=== PATIENT | male | born 1955 | race African-American/Black ===

== ENCOUNTER 2023-12-08 09:55 | Inpatient (IN) | payer OTHER ==
[2023-12-08 12:20] VITALS: BMI 28.6
[2023-12-08] MEDS ORDERED: MAGNESIUM HYDROX 2400MG/30ML ORAL SUSPENSION 30 ML CUP PO PRN (13:19)
[2023-12-08] MEDS ORDERED: NICOTINE POLACRILEX 2 MG GUM BUC PRN (13:19)
[2023-12-08] MEDS ORDERED: ACETAMINOPHEN 325 MG TABLET (FP) PO PRN (13:19)
[2023-12-08] MEDS ORDERED: BENZOCAINE/MENTHOL (CHLORASEPTIC ) LOZENGE MM PRN (13:19)
[2023-12-08] MEDS ORDERED: ONDANSETRON *ODT* 4 MG TABLET SL PRN (13:19)
[2023-12-08] MEDS ORDERED: POLYETHYLENE GLYCOL (HEALTHYLAX) 3350 17 GM PACKET PO PRN (13:19)
[2023-12-08] MEDS ORDERED: NALOXONE (NARCAN) HCL 4 MG/0.1 ML SPRAY NS PRN (13:19)
[2023-12-08] MEDS ORDERED: LOPERAMIDE HCL 2 MG CAPSULE PO PRN (13:19)
[2023-12-08] MEDS ORDERED: IBUPROFEN 400 MG TABLET (FP) PO PRN (13:19)
[2023-12-08] MEDS ORDERED: MAG HYDROX/AL HYDROX/SIMETH 30 ML UNIT-DOSE CUP PO PRN (13:19)
[2023-12-08] MEDS ORDERED: NALOXONE HCL 0.4 MG/ML VIAL IM PRN (13:19)
[2023-12-08] MEDS ORDERED: guaiFENesin 600 MG TABLET.ER (FP) PO PRN (13:19)
[2023-12-08] MEDS ORDERED: BISMUTH SUBSALICYLATE 262 MG/15 ML BTL PO PRN (13:19)
[2023-12-08] MEDS ORDERED: BENZONATATE 200 MG CAPSULE PO PRN (13:19)
[2023-12-08] MEDS: IBUPROFEN 600 MG TABLET (FP) PO PRN (19:57)
[2023-12-08] MEDS: metFORMIN HCL 500 MG TABLET (FP) PO SCH (21:43)
[2023-12-08] MEDS: GABAPENTIN 300 MG CAPSULE PO SCH (21:43)
[2023-12-08] MEDS: THIAMINE 100 MG TABLET PO SCH (21:43)
[2023-12-08] MEDS: MELATONIN 5 MG TABLETS PO SCH (21:44)
[2023-12-09] MEDS ORDERED: MULTIVITAMINS (DAILY MVI) TABLET (FP) PO SCH (10:00)
[2023-12-09] MEDS: BICTEGRAV/EMTRICIT/TENOFOV (BIKTARVY) 50-200-25 MG TABLET PO SCH (10:18)
[2023-12-09] MEDS: NICOTINE 14 MG/24 HOURS TOPICAL PATCH TD SCH (10:18)
[2023-12-09] MEDS: amLODIPine BESYLATE 10 MG TABLET (FP) PO SCH (10:18)
[2023-12-09] MEDS: PRENATAL VITAMINS W/ FOLIC ACID TABLET (FP) PO SCH (10:18)
[2023-12-09] MEDS: FOLIC ACID 1 MG TABLET (FP) PO SCH (10:18)
[2023-12-09] MEDS: LORATADINE 10 MG TABLET PO SCH (10:18)
[2023-12-09] MEDS: PANTOPRAZOLE 40 MG TABLET PO SCH (10:18)
[2023-12-09] MEDS: SULFAMETHOXAZOLE/TRIMETHOPRIM 800MG/160MG D.S. TABLET PO SCH (10:18)
[2023-12-09] MEDS: ASPIRIN COATED 81 MG TABLET.EC PO SCH (10:18)
[2023-12-09] MEDS: VITAMINS A AND D TOPICAL OINTMENT TP SCH (11:18)
[2023-12-09] MEDS ORDERED: ARTIFICIAL TEARS OPHTHALMIC DROPS OU PRN (11:18)
[2023-12-09] MEDS: FENOFIBRIC ACID 45 MG CAP PO SCH (11:19)
[2023-12-09] MEDS: cloNIDine HCL 0.1 MG TABLET PO ONE (22:15)
[2023-12-10 09:04] VITALS: BP 139/84; PULSE 75; RESP 18; TEMP 97.6
[2023-12-10 10:26] LABS: HEMATOCRIT 37.7 % (35.4-49); HEMOGLOBIN 12.9 GM/dL (11.7-16.9); MCH 36.1 pg (25.7-33.7); MCHC 34.2 g/dl (32.0-35.9); MEAN CELL VOLUME 105.7 fl (80-96); MEAN PLT VOLUME 8.7 fl (7.5-11.1); PLATELET COUNT 167 10^3/uL (134-434); RBC 3.57 M/mm3 (4.00-5.60); RDW 14.3 % (11.9-15.9); WHITE BLOOD COUNT 3.6 K/mm3 (4.0-10.0)
[2023-12-10 10:45] LABS: CHLORIDE 107 mmol/L (98-107); POTASSIUM 4.3 mmol/L (3.5-5.1); SODIUM 139 mmol/L (136-145)
[2023-12-10 10:55] LABS: ALBUMIN 3.4 g/dl (3.4-5.0); BLOOD UREA NITROGEN 14.5 mg/dL (7-18); SGPT/ALT 34 U/L (13-61)
[2023-12-10 10:56] LABS: BILIRUBIN,TOTAL 0.3 mg/dL (0.2-1); CALCIUM 8.9 mg/dL (8.5-10.1); SGOT/AST 29 U/L (15-37)
[2023-12-10 10:57] LABS: ALK PHOS 105 U/L (45-117); ANION GAP 8 mmol/L (4-13); CO2 24 mmol/L (21-32); GLUCOSE,RANDOM 145 mg/dL (74-106); TOT PROT 6.7 g/dl (6.4-8.2)
== END 2023-12-10 12:27 | disposition home or self-care (01) | DRG 897 ==
LOC: YASAS 09:55 → Y3N 13:40
PROVIDERS: ADMIT Allergy & Immunology; ATTEND Surgery
PROC: HZ2ZZZZ Detoxification Services for Substance Abuse Treatment (ICD-10-PCS; principal; 2023-12-08)
DX: F10.230 Alcohol dependence with withdrawal, uncomplicated (principal); F17.210 Nicotine dependence, cigarettes, uncomplicated; I10 Essential (primary) hypertension; I25.10 Atherosclerotic heart disease of native coronary artery without angina pectoris; E11.9 Type 2 diabetes mellitus without complications; E78.5 Hyperlipidemia, unspecified; Z21 Asymptomatic human immunodeficiency virus [HIV] infection status; K21.9 Gastro-esophageal reflux disease without esophagitis; G62.89 Other specified polyneuropathies; L29.9 Pruritus, unspecified; Z79.84 Long term (current) use of oral hypoglycemic drugs
CPT/HCPCS: 36415; 80053; 80305; 80307; 82962; 85027; 86593; 86780; 93005; 93010

== ENCOUNTER 2024-02-13 09:47 | Inpatient (IN) | payer OTHER ==
[2024-02-13 11:22] VITALS: BMI 28.3
[2024-02-13] MEDS ORDERED: NALOXONE (NYS OPIOID OVERDOSE PROGRAM) 4 MG/0.1 ML SPRAY NS PRN (13:58)
[2024-02-13] MEDS ORDERED: BISMUTH SUBSALICYLATE 524 MG/30 ML PO PRN (13:58)
[2024-02-13] MEDS ORDERED: IBUPROFEN 400 MG TABLET (FP) PO PRN (13:58)
[2024-02-13] MEDS ORDERED: BENZONATATE 200 MG CAPSULE PO PRN (13:58)
[2024-02-13] MEDS ORDERED: LOPERAMIDE HCL 2 MG CAPSULE PO PRN (13:58)
[2024-02-13] MEDS ORDERED: POLYETHYLENE GLYCOL (HEALTHYLAX) 3350 17 GM PACKET PO PRN (13:58)
[2024-02-13] MEDS ORDERED: MAGNESIUM HYDROX 2400MG/30ML ORAL SUSPENSION 30 ML CUP PO PRN (13:58)
[2024-02-13] MEDS ORDERED: BENZOCAINE/MENTHOL (CHLORASEPTIC ) LOZENGE MM PRN (13:58)
[2024-02-13] MEDS ORDERED: NALOXONE (NARCAN) HCL 4 MG/0.1 ML SPRAY NS PRN (13:58)
[2024-02-13] MEDS ORDERED: ONDANSETRON *ODT* 4 MG TABLET SL PRN (13:58)
[2024-02-13] MEDS ORDERED: guaiFENesin 600 MG TABLET.ER (FP) PO PRN (13:58)
[2024-02-13] MEDS ORDERED: ACETAMINOPHEN 325 MG TABLET (FP) PO PRN (13:58)
[2024-02-13] MEDS ORDERED: chlordiazePOXIDE HCL 25 MG CAPSULE PO PRN (13:58)
[2024-02-13] MEDS ORDERED: DICYCLOMINE HCL 10 MG CAPSULE PO PRN (13:58)
[2024-02-13] MEDS: amLODIPine BESYLATE 10 MG TABLET (FP) PO SCH (15:17)
[2024-02-13] MEDS: GABAPENTIN 300 MG CAPSULE PO SCH (15:17)
[2024-02-13] MEDS: BICTEGRAV/EMTRICIT/TENOFOV (BIKTARVY) 50-200-25 MG TABLET PO SCH (15:17)
[2024-02-13] MEDS: ASPIRIN COATED 81 MG TABLET.EC PO SCH (15:17)
[2024-02-13] MEDS: hydrOXYzine PAMOATE 25 MG CAPSULE (FP) PO PRN (15:35)
[2024-02-13] MEDS: metFORMIN HCL 500 MG TABLET (FP) PO SCH (16:26)
[2024-02-13] MEDS: chlordiazePOXIDE HCL 25 MG CAPSULE PO SCH (17:17)
[2024-02-13] MEDS: IBUPROFEN 600 MG TABLET (FP) PO PRN (19:13)
[2024-02-13 21:28] LABS: PH,URINE 5.5 (5.0-8.0); URINE APPEARANCE CLEAR; URINE BILIRUBIN NEGATIVE (NEGATIVE); URINE COLOR YELLOW; URINE GLUCOSE (UA) NEGATIVE (NEGATIVE); URINE KETONE NEGATIVE (NEGATIVE); URINE LEUK ESTERASE NEGATIVE (NEGATIVE); URINE NITRITE NEGATIVE (NEGATIVE); URINE PROTEIN NEGATIVE (NEGATIVE); URINE UROBILINOGEN 0.2 mg/dL (0.2-1.0)
[2024-02-13] MEDS: METOPROLOL TARTRATE 50 MG TABLET (FP) PO SCH (22:34)
[2024-02-13] MEDS: MELATONIN 5 MG TABLETS PO SCH (22:34)
[2024-02-13] MEDS: THIAMINE 100 MG TABLET PO SCH (22:35)
[2024-02-14] MEDS: SULFAMETHOXAZOLE/TRIMETHOPRIM 800MG/160MG D.S. TABLET PO SCH (10:30)
[2024-02-14] MEDS: PANTOPRAZOLE 40 MG TABLET PO SCH (10:30)
[2024-02-14] MEDS: PRENATAL VITAMINS W/ FOLIC ACID TABLET (FP) PO SCH (10:30)
[2024-02-14] MEDS: FENOFIBRIC ACID 45 MG CAP PO SCH (10:31)
[2024-02-14] MEDS: MAG HYDROX/AL HYDROX/SIMETH 30 ML UNIT-DOSE CUP PO PRN (10:34)
[2024-02-14] MEDS: MICONAZOLE NITRATE 28 GM TUBE TP SCH (11:43)
[2024-02-14 14:02] LABS: HEMOGLOBIN 12.8 GM/dL (11.7-16.9); MCH 35.2 pg (25.7-33.7); MCHC 33.6 g/dl (32.0-35.9); MEAN PLT VOLUME 8.8 fl (7.5-11.1); PLATELET COUNT 146 10^3/uL (134-434); RBC 3.62 M/mm3 (4.00-5.60); RDW 14.4 % (11.9-15.9); WHITE BLOOD COUNT 2.7 K/mm3 (4.0-10.0)
[2024-02-14 14:35] LABS: CHLORIDE 108 mmol/L (98-107); POTASSIUM 3.8 mmol/L (3.5-5.1); SODIUM 140 mmol/L (136-145)
[2024-02-14 14:45] LABS: ALBUMIN 3.5 g/dl (3.4-5.0); ANION GAP 6 mmol/L (4-13); CALCIUM 8.7 mg/dL (8.5-10.1); CO2 26 mmol/L (21-32); GLUCOSE,RANDOM 123 mg/dL (74-106)
[2024-02-14 14:48] LABS: CREATININE 0.9 mg/dL (0.55-1.3); SGOT/AST 23 U/L (15-37); SGPT/ALT 28 U/L (13-61)
[2024-02-14 14:50] LABS: ALK PHOS 93 U/L (45-117); BILIRUBIN,TOTAL 0.3 mg/dL (0.2-1); TOT PROT 6.9 g/dl (6.4-8.2)
[2024-02-15] MEDS: chlordiazePOXIDE HCL 25 MG CAPSULE PO SCH (05:49)
[2024-02-15] MEDS: TETRAHYDROZOLINE HCL EYE DROPS OU PRN (13:39)
[2024-02-16] MEDS ORDERED: chlordiazePOXIDE HCL 10 MG CAPSULE PO PRN
[2024-02-16] MEDS: chlordiazePOXIDE HCL 10 MG CAPSULE PO SCH (06:00)
[2024-02-16 23:35] LABS: URINE APPEARANCE CLEAR; URINE BILIRUBIN NEGATIVE (NEGATIVE); URINE COLOR YELLOW; URINE GLUCOSE (UA) NEGATIVE (NEGATIVE); URINE KETONE NEGATIVE (NEGATIVE); URINE LEUK ESTERASE NEGATIVE (NEGATIVE); URINE NITRITE NEGATIVE (NEGATIVE); URINE PROTEIN NEGATIVE (NEGATIVE); URINE UROBILINOGEN 0.2 mg/dL (0.2-1.0)
[2024-02-17] MEDS: chlordiazePOXIDE HCL 10 MG CAPSULE PO SCH (05:55)
[2024-02-17 13:53] VITALS: RESP 18
[2024-02-18] MEDS: chlordiazePOXIDE HCL 10 MG CAPSULE PO ONE (05:55)
[2024-02-18 13:15] VITALS: BP 141/74; PULSE 80; TEMP 97.5
== END 2024-02-18 13:27 | disposition other institution (70) | DRG 897 ==
LOC: YASAS 09:47 → Y3N 14:28
PROVIDERS: ADMIT Surgery; ATTEND Surgery
PROC: HZ2ZZZZ Detoxification Services for Substance Abuse Treatment (ICD-10-PCS; principal; 2024-02-13)
DX: F10.230 Alcohol dependence with withdrawal, uncomplicated (principal); Z21 Asymptomatic human immunodeficiency virus [HIV] infection status; G62.1 Alcoholic polyneuropathy; E78.5 Hyperlipidemia, unspecified; I25.10 Atherosclerotic heart disease of native coronary artery without angina pectoris; I10 Essential (primary) hypertension; K21.9 Gastro-esophageal reflux disease without esophagitis; E11.59 Type 2 diabetes mellitus with other circulatory complications; Z79.84 Long term (current) use of oral hypoglycemic drugs; Z79.899 Other long term (current) drug therapy; Z86.19 Personal history of other infectious and parasitic diseases; Z88.8 Allergy status to other drugs, medicaments and biological substances
CPT/HCPCS: 36415; 80053; 80305; 80307; 81003; 82962; 85027; 86593; 86780; 93005; 93010

== ENCOUNTER 2024-02-18 13:33 | Inpatient (IN) | payer OTHER ==
[2024-02-18 13:45] VITALS: BMI 28.3
[2024-02-18] MEDS ORDERED: NALOXONE (NARCAN) HCL 4 MG/0.1 ML SPRAY NS PRN (15:48)
[2024-02-18] MEDS ORDERED: guaiFENesin 600 MG TABLET.ER (FP) PO PRN (15:48)
[2024-02-18] MEDS ORDERED: LOPERAMIDE HCL 2 MG CAPSULE PO PRN (15:48)
[2024-02-18] MEDS ORDERED: BENZONATATE 200 MG CAPSULE PO PRN (15:48)
[2024-02-18] MEDS ORDERED: NALOXONE HCL 0.4 MG/ML VIAL IVPUSH PRN (15:48)
[2024-02-18] MEDS ORDERED: BENZOCAINE/MENTHOL (CHLORASEPTIC ) LOZENGE MM PRN (15:48)
[2024-02-18] MEDS ORDERED: NICOTINE POLACRILEX 2 MG GUM BUC PRN (15:48)
[2024-02-18] MEDS ORDERED: ACETAMINOPHEN 325 MG TABLET (FP) PO PRN (15:48)
[2024-02-18] MEDS ORDERED: IBUPROFEN 400 MG TABLET (FP) PO PRN (15:48)
[2024-02-18] MEDS ORDERED: POLYETHYLENE GLYCOL (HEALTHYLAX) 3350 17 GM PACKET PO PRN (15:48)
[2024-02-18] MEDS ORDERED: NICOTINE POLACRILEX 2 MG LOZENGE BC PRN (15:48)
[2024-02-18] MEDS ORDERED: MAGNESIUM HYDROX 2400MG/30ML ORAL SUSPENSION 30 ML CUP PO PRN (15:48)
[2024-02-18] MEDS: metFORMIN HCL 500 MG TABLET (FP) PO SCH (17:26)
[2024-02-18] MEDS: IBUPROFEN 600 MG TABLET (FP) PO PRN (21:27)
[2024-02-18] MEDS: THIAMINE 100 MG TABLET PO SCH (21:28)
[2024-02-18] MEDS: METOPROLOL TARTRATE 50 MG TABLET (FP) PO SCH (21:28)
[2024-02-18] MEDS: GABAPENTIN 300 MG CAPSULE PO SCH (21:28)
[2024-02-18] MEDS: MELATONIN 5 MG TABLETS PO SCH (21:29)
[2024-02-19] MEDS: MAG HYDROX/AL HYDROX/SIMETH 30 ML UNIT-DOSE CUP PO PRN (06:17)
[2024-02-19] MEDS: BICTEGRAV/EMTRICIT/TENOFOV (BIKTARVY) 50-200-25 MG TABLET PO SCH (07:11)
[2024-02-19] MEDS: PANTOPRAZOLE 40 MG TABLET PO SCH (07:12)
[2024-02-19] MEDS ORDERED: SIMETHICONE 80 MG TAB.CHEW (FP) PO PRN (08:50)
[2024-02-19] MEDS: TETRAHYDROZOLINE HCL EYE DROPS OU PRN (09:03)
[2024-02-19] MEDS: ASPIRIN COATED 81 MG TABLET.EC PO SCH (09:45)
[2024-02-19] MEDS: PRENATAL VITAMINS W/ FOLIC ACID TABLET (FP) PO SCH (09:45)
[2024-02-19] MEDS: amLODIPine BESYLATE 10 MG TABLET (FP) PO SCH (09:45)
[2024-02-19] MEDS: FOLIC ACID 1 MG TABLET (FP) PO SCH (09:46)
[2024-02-19] MEDS: SULFAMETHOXAZOLE/TRIMETHOPRIM 800MG/160MG D.S. TABLET PO SCH (09:46)
[2024-02-19] MEDS: FENOFIBRIC ACID 45 MG CAP PO SCH (09:46)
[2024-02-19] MEDS: diphenhydrAMINE HCL 25 MG CAPSULE (FP) PO ONE (19:20)
[2024-02-20] MEDS: HYDROCORTISONE 1% TOPICAL CREAM 30 GM TUBE TP PRN (22:45)
[2024-02-21] MEDS: diphenhydrAMINE HCL 25 MG CAPSULE (FP) PO PRN (10:38)
[2024-02-21 21:19] LABS: URINE APPEARANCE CLEAR; URINE BILIRUBIN NEGATIVE (NEGATIVE); URINE COLOR YELLOW; URINE GLUCOSE (UA) 3+ (NEGATIVE); URINE KETONE NEGATIVE (NEGATIVE); URINE LEUK ESTERASE NEGATIVE (NEGATIVE); URINE NITRITE NEGATIVE (NEGATIVE); URINE PROTEIN NEGATIVE (NEGATIVE); URINE UROBILINOGEN 0.2 mg/dL (0.2-1.0)
[2024-02-22] MEDS: metFORMIN HCL 500 MG TABLET (FP) PO SCH (17:01)
[2024-02-22] MEDS: DULoxetine HCL 20 MG CAPSULE.DR PO SCH (19:27)
[2024-02-23 11:22] LABS: URINE APPEARANCE CLEAR; URINE BILIRUBIN NEGATIVE (NEGATIVE); URINE COLOR YELLOW; URINE GLUCOSE (UA) NEGATIVE (NEGATIVE); URINE KETONE NEGATIVE (NEGATIVE); URINE LEUK ESTERASE NEGATIVE (NEGATIVE); URINE NITRITE NEGATIVE (NEGATIVE); URINE PROTEIN NEGATIVE (NEGATIVE); URINE UROBILINOGEN 0.2 mg/dL (0.2-1.0)
[2024-02-24] MEDS: PANTOPRAZOLE 40 MG TABLET PO SCH (06:31)
[2024-02-24] MEDS: BICTEGRAV/EMTRICIT/TENOFOV (BIKTARVY) 50-200-25 MG TABLET PO SCH (06:31)
[2024-02-24 06:53] VITALS: RESP 18; TEMP 97
[2024-02-25 07:01] VITALS: BP 121/78; PULSE 75
== END 2024-02-25 10:50 | disposition home or self-care (01) | DRG 895 ==
LOC: YASAS 13:33 → Y3NR 13:34 → Y5N 02-22 11:57
PROVIDERS: ADMIT Psychiatry & Neurology Pain Medicine; ATTEND Psychiatry & Neurology Pain Medicine
PROC: HZ42ZZZ Group Counseling for Substance Abuse Treatment, Cognitive-Behavioral (ICD-10-PCS; principal; 2024-02-18)
DX: F10.20 Alcohol dependence, uncomplicated (principal); F17.210 Nicotine dependence, cigarettes, uncomplicated; K21.9 Gastro-esophageal reflux disease without esophagitis; I25.10 Atherosclerotic heart disease of native coronary artery without angina pectoris; I10 Essential (primary) hypertension; E11.42 Type 2 diabetes mellitus with diabetic polyneuropathy; Z79.84 Long term (current) use of oral hypoglycemic drugs; Z88.8 Allergy status to other drugs, medicaments and biological substances
CPT/HCPCS: 36415; 81003; 82962; 84153

== ENCOUNTER 2024-06-29 13:59 | Inpatient (IN) | payer OTHER ==
[2024-06-29 14:26] VITALS: BMI 28.0
[2024-06-29] MEDS ORDERED: DICYCLOMINE HCL 10 MG CAPSULE PO PRN (15:05)
[2024-06-29] MEDS ORDERED: BENZOCAINE/MENTHOL (CHLORASEPTIC ) LOZENGE MM PRN (15:05)
[2024-06-29] MEDS ORDERED: NALOXONE (NARCAN) HCL 4 MG/0.1 ML SPRAY NS PRN (15:05)
[2024-06-29] MEDS ORDERED: BENZONATATE 200 MG CAPSULE PO PRN (15:05)
[2024-06-29] MEDS ORDERED: MAGNESIUM HYDROX 2400MG/30ML ORAL SUSPENSION 30 ML CUP PO PRN (15:05)
[2024-06-29] MEDS ORDERED: guaiFENesin 600 MG TABLET.ER (FP) PO PRN (15:05)
[2024-06-29] MEDS ORDERED: POLYETHYLENE GLYCOL (HEALTHYLAX) 3350 17 GM PACKET PO PRN (15:05)
[2024-06-29] MEDS ORDERED: ONDANSETRON *ODT* 4 MG TABLET SL PRN (15:05)
[2024-06-29] MEDS ORDERED: chlordiazePOXIDE HCL 25 MG CAPSULE PO PRN ×2 (15:05→15:25)
[2024-06-29] MEDS: INSULIN ASPART SLIDING SCALE (NOVOLOG) 1 VIAL SQ SCH (16:51)
[2024-06-29] MEDS ORDERED: chlordiazePOXIDE HCL 25 MG CAPSULE PO SCH (17:00)
[2024-06-29] MEDS: chlordiazePOXIDE HCL 25 MG CAPSULE PO SCH (17:15)
[2024-06-29] MEDS: ACETAMINOPHEN 325 MG TABLET (FP) PO PRN (17:15)
[2024-06-29] MEDS: hydrOXYzine PAMOATE 25 MG CAPSULE (FP) PO PRN (17:18)
[2024-06-29] MEDS: amLODIPine BESYLATE 10 MG TABLET (FP) PO SCH (17:47)
[2024-06-29] MEDS: IBUPROFEN 400 MG TABLET (FP) PO PRN (19:46)
[2024-06-29] MEDS: MAG HYDROX/AL HYDROX/SIMETH 30 ML UNIT-DOSE CUP PO PRN (21:08)
[2024-06-29] MEDS: MELATONIN 5 MG TABLETS PO SCH (22:18)
[2024-06-29] MEDS: THIAMINE 100 MG TABLET PO SCH (22:18)
[2024-06-29] MEDS: METOPROLOL TARTRATE 50 MG TABLET (FP) PO SCH (22:18)
[2024-06-30] MEDS: PANTOPRAZOLE 40 MG TABLET PO SCH (06:35)
[2024-06-30] MEDS: BICTEGRAV/EMTRICIT/TENOFOV (BIKTARVY) 50-200-25 MG TABLET PO SCH (07:19)
[2024-06-30] MEDS: ASPIRIN COATED 81 MG TABLET.EC PO SCH (10:05)
[2024-06-30] MEDS: PRENATAL VITAMINS W/ FOLIC ACID TABLET (FP) PO SCH (10:05)
[2024-06-30] MEDS: SULFAMETHOXAZOLE/TRIMETHOPRIM 800MG/160MG D.S. TABLET PO SCH (10:05)
[2024-06-30 11:10] LABS: HEMATOCRIT 36.6 % (35.4-49); HEMOGLOBIN 12.7 GM/dL (11.7-16.9); MCH 36.3 pg (25.7-33.7); MCHC 34.8 g/dl (32.0-35.9); MEAN CELL VOLUME 104.2 fl (80-96); MEAN PLT VOLUME 8.6 fl (7.5-11.1); PLATELET COUNT 131 10^3/uL (134-434); RBC 3.51 M/mm3 (4.00-5.60); RDW 15.9 % (11.9-15.9); WHITE BLOOD COUNT 2.3 K/mm3 (4.0-10.0)
[2024-06-30 11:22] LABS: CHLORIDE 104 mmol/L (98-107); SODIUM 139 mmol/L (136-145)
[2024-06-30 11:32] LABS: ALBUMIN 3.2 g/dl (3.4-5.0); ANION GAP 8 mmol/L (4-13); BLOOD UREA NITROGEN 9.6 mg/dL (7-18); CALCIUM 8.5 mg/dL (8.5-10.1); CO2 28 mmol/L (21-32)
[2024-06-30 11:33] LABS: GLUCOSE,RANDOM 151 mg/dL (74-106)
[2024-06-30] MEDS ORDERED: diazePAM 5 MG TABLET PO PRN (11:33)
[2024-06-30 11:35] LABS: SGOT/AST 36 U/L (15-37); SGPT/ALT 33 U/L (13-61)
[2024-06-30 11:36] LABS: CREATININE 0.9 mg/dL (0.55-1.3)
[2024-06-30 11:37] LABS: BILIRUBIN,TOTAL 0.8 mg/dL (0.2-1); TOT PROT 6.5 g/dl (6.4-8.2)
[2024-06-30 11:38] LABS: ALK PHOS 83 U/L (45-117)
[2024-06-30] MEDS: POTASSIUM CHLORIDE ORAL LIQUID 20 MEQ/15 ML PO ONE (12:05)
[2024-06-30] MEDS: diazePAM 5 MG TABLET PO SCH (17:28)
[2024-06-30] MEDS: BISMUTH SUBSALICYLATE 262 MG/15 ML BTL PO PRN (17:29)
[2024-06-30] MEDS: TETRAHYDROZOLINE HCL EYE DROPS OU PRN (17:32)
[2024-06-30] MEDS: LOPERAMIDE HCL 2 MG CAPSULE PO PRN (22:21)
[2024-07-01] MEDS ORDERED: chlordiazePOXIDE HCL 25 MG CAPSULE PO SCH (05:00)
[2024-07-01] MEDS: diazePAM 5 MG TABLET PO SCH (06:12)
[2024-07-01 10:19] LABS: POTASSIUM 3.3 mmol/L (3.5-5.1)
[2024-07-01 10:24] LABS: BLOOD UREA NITROGEN 12.4 mg/dL (7-18)
[2024-07-01] MEDS: POTASSIUM CHLORIDE ORAL LIQUID 20 MEQ/15 ML PO ONE (14:30)
[2024-07-02] MEDS ORDERED: chlordiazePOXIDE HCL 10 MG CAPSULE PO PRN ×2
[2024-07-02] MEDS ORDERED: chlordiazePOXIDE HCL 10 MG CAPSULE PO SCH ×2 (05:00)
[2024-07-02] MEDS: diazePAM 5 MG TABLET PO SCH (06:37)
[2024-07-02 10:20] LABS: POTASSIUM 3.7 mmol/L (3.5-5.1)
[2024-07-02 10:22] LABS: CALCIUM 9.2 mg/dL (8.5-10.1)
[2024-07-02 10:23] LABS: BLOOD UREA NITROGEN 16.1 mg/dL (7-18)
[2024-07-02] MEDS: diphenhydrAMINE HCL 25 MG CAPSULE (FP) PO ONE (18:13)
[2024-07-02] MEDS: VITAMINS A AND D TOPICAL OINTMENT TP SCH (23:15)
[2024-07-03] MEDS ORDERED: chlordiazePOXIDE HCL 10 MG CAPSULE PO SCH ×2 (05:00)
[2024-07-03] MEDS: diazePAM 5 MG TABLET PO ONE (06:02)
[2024-07-03 09:00] VITALS: RESP 18
[2024-07-03] MEDS ORDERED: HYDROCORTISONE 1% TOPICAL CREAM 30 GM TUBE TP PRN (10:23)
[2024-07-03] MEDS ORDERED: diphenhydrAMINE HCL 25 MG CAPSULE (FP) PO PRN (10:23)
[2024-07-03] MEDS: GABAPENTIN 300 MG CAPSULE PO SCH (11:16)
[2024-07-03 13:04] VITALS: BP 117/87; PULSE 63; TEMP 97.8
[2024-07-03] MEDS ORDERED: metFORMIN HCL 500 MG TABLET (FP) PO SCH (16:30)
[2024-07-04] MEDS ORDERED: chlordiazePOXIDE HCL 10 MG CAPSULE PO ONE ×2 (05:00)
[2024-07-04] MEDS ORDERED: FENOFIBRIC ACID 45 MG CAP PO SCH (10:00)
== END 2024-07-03 15:03 | disposition other institution (70) | DRG 897 ==
LOC: YASAS 13:59 → Y3N 16:13
PROVIDERS: ADMIT Allergy & Immunology; ATTEND Allergy & Immunology
PROC: HZ2ZZZZ Detoxification Services for Substance Abuse Treatment (ICD-10-PCS; principal; 2024-06-29)
DX: F10.230 Alcohol dependence with withdrawal, uncomplicated (principal); F14.20 Cocaine dependence, uncomplicated; F17.210 Nicotine dependence, cigarettes, uncomplicated; Z21 Asymptomatic human immunodeficiency virus [HIV] infection status; G62.1 Alcoholic polyneuropathy; I25.10 Atherosclerotic heart disease of native coronary artery without angina pectoris; I10 Essential (primary) hypertension; E78.5 Hyperlipidemia, unspecified; E11.9 Type 2 diabetes mellitus without complications; Z79.84 Long term (current) use of oral hypoglycemic drugs; L29.9 Pruritus, unspecified
CPT/HCPCS: 36415; 80048; 80053; 80305; 80307; 82962; 85027; 86593; 86780; 87811; 93005; 93010

== ENCOUNTER 2024-07-03 15:04 | Inpatient (IN) | payer OTHER ==
[2024-07-03] MEDS ORDERED: IBUPROFEN 400 MG TABLET (FP) PO PRN (15:22)
[2024-07-03] MEDS ORDERED: guaiFENesin 600 MG TABLET.ER (FP) PO PRN (15:22)
[2024-07-03] MEDS ORDERED: BENZOCAINE/MENTHOL (CHLORASEPTIC ) LOZENGE MM PRN (15:22)
[2024-07-03] MEDS ORDERED: METHOCARBAMOL 500 MG TABLET PO PRN (15:22)
[2024-07-03] MEDS ORDERED: BENZONATATE 200 MG CAPSULE PO PRN (15:22)
[2024-07-03] MEDS ORDERED: LOPERAMIDE HCL 2 MG CAPSULE PO PRN (15:22)
[2024-07-03] MEDS ORDERED: POLYETHYLENE GLYCOL (HEALTHYLAX) 3350 17 GM PACKET PO PRN (15:22)
[2024-07-03] MEDS ORDERED: MAGNESIUM HYDROX 2400MG/30ML ORAL SUSPENSION 30 ML CUP PO PRN (15:22)
[2024-07-03] MEDS ORDERED: metFORMIN HCL 500 MG TABLET (FP) PO SCH (16:30)
[2024-07-03] MEDS: metFORMIN HCL 500 MG TABLET (FP) PO SCH (17:22)
[2024-07-03] MEDS: GABAPENTIN 300 MG CAPSULE PO SCH (22:16)
[2024-07-03] MEDS: MELATONIN 5 MG TABLETS PO SCH (22:16)
[2024-07-03] MEDS: METOPROLOL TARTRATE 50 MG TABLET (FP) PO SCH (22:16)
[2024-07-03] MEDS: THIAMINE 100 MG TABLET PO SCH (22:16)
[2024-07-04] MEDS: hydrOXYzine PAMOATE 25 MG CAPSULE (FP) PO PRN (01:03)
[2024-07-04] MEDS: ACETAMINOPHEN 325 MG TABLET (FP) PO PRN (01:03)
[2024-07-04] MEDS: PRENATAL VITAMINS W/ FOLIC ACID TABLET (FP) PO SCH (05:35)
[2024-07-04] MEDS: PANTOPRAZOLE 40 MG TABLET PO SCH (06:13)
[2024-07-04] MEDS: ASPIRIN COATED 81 MG TABLET.EC PO SCH (09:33)
[2024-07-04] MEDS: amLODIPine BESYLATE 10 MG TABLET (FP) PO SCH (09:33)
[2024-07-04] MEDS: SULFAMETHOXAZOLE/TRIMETHOPRIM 800MG/160MG D.S. TABLET PO SCH (09:33)
[2024-07-04] MEDS: BICTEGRAV/EMTRICIT/TENOFOV (BIKTARVY) 50-200-25 MG TABLET PO SCH (09:33)
[2024-07-04] MEDS: FOLIC ACID 1 MG TABLET (FP) PO SCH (09:34)
[2024-07-04] MEDS: FENOFIBRIC ACID 45 MG CAP PO SCH (09:36)
[2024-07-05] MEDS: HYDROCORTISONE 1% TOPICAL CREAM 30 GM TUBE TP PRN (09:53)
[2024-07-05] MEDS: diphenhydrAMINE HCL 25 MG CAPSULE (FP) PO PRN (09:58)
[2024-07-05] MEDS: GABAPENTIN 400 MG CAPSULE PO SCH (14:14)
[2024-07-05] MEDS: BACLOFEN 10 MG TABLET (FP) PO SCH (21:14)
[2024-07-06] MEDS: TETRAHYDROZOLINE HCL EYE DROPS OU PRN (21:20)
[2024-07-07] MEDS: LIDOCAINE 5% TOPICAL PATCH TP SCH (09:41)
[2024-07-07] MEDS: LIDOCAINE PATCH REMOVAL MC SCH (21:05)
[2024-07-08] MEDS: MAG HYDROX/AL HYDROX/SIMETH 30 ML UNIT-DOSE CUP PO PRN (14:03)
[2024-07-08] MEDS: IBUPROFEN 600 MG TABLET (FP) PO PRN (16:55)
[2024-07-10 18:36] LABS: URINE APPEARANCE CLEAR; URINE BILIRUBIN NEGATIVE (NEGATIVE); URINE COLOR YELLOW; URINE GLUCOSE (UA) NEGATIVE (NEGATIVE); URINE KETONE NEGATIVE (NEGATIVE); URINE LEUK ESTERASE NEGATIVE (NEGATIVE); URINE NITRITE NEGATIVE (NEGATIVE); URINE PROTEIN NEGATIVE (NEGATIVE); URINE UROBILINOGEN 0.2 mg/dL (0.2-1.0)
[2024-07-17 06:52] VITALS: BP 149/85; PULSE 77; RESP 16; TEMP 97.5
== END 2024-07-17 10:15 | disposition home or self-care (01) | DRG 895 ==
LOC: YASAS 15:04 → Y3NR 15:06 → Y5N 07-04 11:24
PROVIDERS: ADMIT Psychiatry & Neurology Pain Medicine; ATTEND Psychiatry & Neurology Pain Medicine
PROC: HZ42ZZZ Group Counseling for Substance Abuse Treatment, Cognitive-Behavioral (ICD-10-PCS; principal; 2024-07-03)
DX: F10.20 Alcohol dependence, uncomplicated (principal); F14.20 Cocaine dependence, uncomplicated; F17.210 Nicotine dependence, cigarettes, uncomplicated; Z21 Asymptomatic human immunodeficiency virus [HIV] infection status; I25.10 Atherosclerotic heart disease of native coronary artery without angina pectoris; I10 Essential (primary) hypertension; E11.40 Type 2 diabetes mellitus with diabetic neuropathy, unspecified; Z79.84 Long term (current) use of oral hypoglycemic drugs; K21.9 Gastro-esophageal reflux disease without esophagitis; M54.50 Low back pain, unspecified; G89.29 Other chronic pain; R76.8 Other specified abnormal immunological findings in serum; Z86.19 Personal history of other infectious and parasitic diseases
CPT/HCPCS: 36415; 81003; 82962; 86803; J0475

== ENCOUNTER 2024-12-28 10:05 | Inpatient (IN) | payer OTHER ==
[2024-12-28 10:33] VITALS: BMI 27.7
[2024-12-28] MEDS ORDERED: IBUPROFEN 400 MG TABLET (FP) PO PRN (13:09)
[2024-12-28] MEDS ORDERED: BENZONATATE 200 MG CAPSULE PO PRN (13:09)
[2024-12-28] MEDS ORDERED: NALOXONE (NARCAN) HCL 4 MG/0.1 ML SPRAY NS PRN (13:09)
[2024-12-28] MEDS ORDERED: NICOTINE POLACRILEX 2 MG GUM BUC PRN (13:09)
[2024-12-28] MEDS ORDERED: BISMUTH SUBSALICYLATE 524 MG/30 ML PO PRN (13:09)
[2024-12-28] MEDS ORDERED: MAG HYDROX/AL HYDROX/SIMETH 30 ML UNIT-DOSE CUP PO PRN (13:09)
[2024-12-28] MEDS ORDERED: MAGNESIUM HYDROX 2400MG/30ML ORAL SUSPENSION 30 ML CUP PO PRN (13:09)
[2024-12-28] MEDS ORDERED: POLYETHYLENE GLYCOL (HEALTHYLAX) 3350 17 GM PACKET PO PRN (13:09)
[2024-12-28] MEDS ORDERED: guaiFENesin 600 MG TABLET.ER (FP) PO PRN (13:09)
[2024-12-28] MEDS ORDERED: BENZOCAINE/MENTHOL (CHLORASEPTIC ) LOZENGE MM PRN (13:09)
[2024-12-28] MEDS ORDERED: ONDANSETRON *ODT* 4 MG TABLET SL PRN (13:09)
[2024-12-28] MEDS ORDERED: hydrOXYzine PAMOATE 25 MG CAPSULE (FP) PO PRN (13:09)
[2024-12-28] MEDS ORDERED: DICYCLOMINE HCL 10 MG CAPSULE PO PRN (13:09)
[2024-12-28] MEDS ORDERED: LOPERAMIDE HCL 2 MG CAPSULE PO PRN (13:09)
[2024-12-28] MEDS ORDERED: ACETAMINOPHEN 325 MG TABLET (FP) PO PRN (13:09)
[2024-12-28] MEDS: GABAPENTIN 300 MG CAPSULE PO SCH (14:52)
[2024-12-28] MEDS: metFORMIN HCL 500 MG TABLET (FP) PO SCH (16:51)
[2024-12-28] MEDS: IBUPROFEN 600 MG TABLET (FP) PO PRN (16:52)
[2024-12-28] MEDS: MELATONIN 5 MG TABLETS PO SCH (22:44)
[2024-12-28] MEDS: THIAMINE 100 MG TABLET PO SCH (22:44)
[2024-12-28] MEDS: METOPROLOL TARTRATE 50 MG TABLET (FP) PO SCH (22:44)
[2024-12-29] MEDS: PANTOPRAZOLE 40 MG TABLET PO SCH (07:01)
[2024-12-29] MEDS: BICTEGRAV/EMTRICIT/TENOFOV (BIKTARVY) 50-200-25 MG TABLET PO SCH (08:02)
[2024-12-29 09:52] LABS: MCHC 33.0 g/dl (32.3-36.5); MEAN CELL VOLUME 103.1 fl (79.0-92.2); MEAN PLT VOLUME 10.5 fl (9.4-12.4); RDW 14.7 % (12.2-16.4)
[2024-12-29 10:05] LABS: GLUCOSE,RANDOM 119.0 mg/dL (74-106)
[2024-12-29 10:06] LABS: TOT PROT 6.1 g/dl (6.4-8.2)
[2024-12-29 10:07] LABS: CO2 22.0 mmol/L (21-32)
[2024-12-29 10:08] LABS: ALK PHOS 77.0 U/L (40-150)
[2024-12-29 10:11] LABS: CREATININE 1.1 mg/dL (0.55-1.3); SGOT/AST 20.0 U/L (5-34); SGPT/ALT 11.0 U/L (0-55)
[2024-12-29 10:37] LABS: SYPHILIS W/ RPR CONF REACTIVE (NONREACTIVE)
[2024-12-29] MEDS: PRENATAL VITAMINS W/ FOLIC ACID TABLET (FP) PO SCH (10:38)
[2024-12-29] MEDS: ASPIRIN COATED 81 MG TABLET.EC PO SCH (10:38)
[2024-12-29] MEDS: SULFAMETHOXAZOLE/TRIMETHOPRIM 800MG/160MG D.S. TABLET PO SCH (10:38)
[2024-12-29] MEDS: amLODIPine BESYLATE 10 MG TABLET (FP) PO SCH (10:38)
[2024-12-29] MEDS: NICOTINE 14 MG/24 HOURS TOPICAL PATCH TD SCH (10:39)
[2024-12-29] MEDS: NALTREXONE HCL 50 MG TABLET PO ONE (14:56)
[2024-12-29 16:19] LABS: RPR REFLEX REACTIVE 1:1 (NONREACTIVE)
[2024-12-29] MEDS: METHOCARBAMOL 500 MG TABLET PO PRN (22:04)
[2024-12-30 09:26] VITALS: RESP 16
[2024-12-30] MEDS: NALTREXONE HCL 50 MG TABLET PO SCH (10:42)
[2024-12-30 13:26] VITALS: BP 146/86; PULSE 53; TEMP 97.8
== END 2024-12-30 12:56 | disposition home or self-care (01) | DRG 897 ==
LOC: YASAS 10:05 → Y6N 14:23
PROVIDERS: ADMIT Allergy & Immunology; ATTEND Family Medicine
PROC: HZ2ZZZZ Detoxification Services for Substance Abuse Treatment (ICD-10-PCS; principal; 2024-12-28)
DX: F10.20 Alcohol dependence, uncomplicated (principal); F14.20 Cocaine dependence, uncomplicated; F19.282 Other psychoactive substance dependence with psychoactive substance-induced sleep disorder; Z59.00 Homelessness unspecified; F16.24 Hallucinogen dependence with hallucinogen-induced mood disorder; Z21 Asymptomatic human immunodeficiency virus [HIV] infection status; E78.2 Mixed hyperlipidemia; G62.1 Alcoholic polyneuropathy; I25.10 Atherosclerotic heart disease of native coronary artery without angina pectoris; I10 Essential (primary) hypertension; E11.59 Type 2 diabetes mellitus with other circulatory complications; Z86.19 Personal history of other infectious and parasitic diseases; Z56.0 Unemployment, unspecified; Z88.8 Allergy status to other drugs, medicaments and biological substances; Z79.84 Long term (current) use of oral hypoglycemic drugs
CPT/HCPCS: 36415; 80053; 80307; 82962; 83036; 85027; 86593; 86780; 86803; 93005; 93010